=== PATIENT | female | born 1960 ===

== ENCOUNTER 2017-05-25 20:06 | Inpatient (IN) | payer OTHER ==
[~2017-05-25] VITALS: Ht 160 cm; Wt 66.0 kg
[2017-05-25 20:08] VITALS: BP 173/77; PULSE 64; RESP 16; TEMP 98.8; O2SAT 98
[2017-05-25] MEDS ORDERED: ATOR20TA15 PO (20:40)
--- NOTE | 2017-05-25 21:03 | PD ---
HPI Chief Complaint: Abdominal Pain Time Seen by Provider: 20:56 Travel History International Travel<30 days: No Contact w/Intl Traveler<30days: No Traveled to known affect area: No History of Present Illness HPI 56-year-old female came to the emergency room with history of vomiting since midnight last night and abdominal pain in the right upper quadrant and epigastric area. Patient speaks limited Pashto but is able to communicate with her broken Pashto. She appeared to be in moderate to significant distress. She does not have any significant medical history. Her temperature was 100. No history of diarrhea. She has never had these symptoms in the past. Heart rate and blood pressure were within normal limits. [facility] Past Medical History Narrative Medical List of her past medical, surgical, social and family history reviewed from the nursing note. Immunizations Current: Yes Tetanus Vaccination: Unknown Influenza Vaccination: No Social History Alcohol Use: Yes (socially) Tobacco Use: Yes Substance Use: No Allergies-Medications (Allergen,Severity, Reaction): Coded Allergies: No Known Allergies (Verified Allergy, Unknown, 05/25/17) Comments No known drug allergies. Reported Meds & Prescriptions Reported Meds & Active Scripts Active Reported Atorvastatin (Atorvastatin Calcium) 20 Mg Tab 20 Mg PO HS Narrative Medication List of her home medications reviewed from the nursing note. Review of Systems Except as stated in HPI: all other systems reviewed are Neg Physical Exam Narrative GENERAL: Awake, alert, moderate distress SKIN: Focused skin assessment warm/dry. HEAD: Atraumatic. Normocephalic. EYES: Pupils equal and round. No scleral icterus. No injection or drainage. ENT: No nasal bleeding or discharge. Mucous membranes pink and moist. NECK: Trachea midline. No JVD. CARDIOVASCULAR: Regular rate and rhythm. No murmur appreciated. RESPIRATORY: No accessory muscle use. Clear to auscultation. Breath sounds equal bilaterally. GASTROINTESTINAL: Abdomen soft, Hou sign positive, nondistended. Hepatic and splenic margins not palpable. MUSCULOSKELETAL: No obvious deformities. No clubbing. No cyanosis. No edema. NEUROLOGICAL: Awake and alert. No obvious cranial nerve deficits. Motor grossly within normal limits. Normal speech. PSYCHIATRIC: Appropriate mood and affect; insight and judgment normal. Data Data Last Documented VS Vital Signs Date Time Temp Pulse Resp B/P (MAP) Pulse Ox O2 Delivery O2 Flow Rate FiO2 05/25/17 22:19 64 16 100 Room Air 05/25/17 20:08 98.8 Orders Orders Complete Blood Count With Diff (05/25/17 20:43) Comprehensive Metabolic Panel (05/25/17 20:43) Iv Access Insert/Monitor (05/25/17 20:43) Oxygen Administration (05/25/17 20:43) Oximetry (05/25/17 20:43) Lipase (05/25/17 20:43) Ed Poc Ultrasound (05/25/17 ) Ct Abd/Pel W/O Iv Contrast (05/25/17 ) Morphine Inj (Morphine Inj) (05/25/17 21:45) Ondansetron Inj (Zofran Inj) (05/25/17 21:45) Sodium Chlor 0.9% 1000 Ml Inj (Ns 1000 M (05/25/17 21:45) Lactic Acid (05/25/17 21:42) Blood Culture (05/25/17 21:42) Prothrombin Time / Inr (Pt) (05/25/17 21:42) Type And Screen (05/25/17 21:42) Piperacil-Tazo 3.375 Gm Premix (Zosyn 3. (05/25/17 21:45) Us Abdomen Gallbladder (05/25/17 ) Admit Order (Ed Use Only) (05/25/17 22:34) Labs Laboratory Tests Test 05/25/17 20:45 05/25/17 21:50 05/25/17 21:58 White Blood Count 15.9 TH/MM3 Red Blood Count 4.69 MIL/MM3 Hemoglobin 14.4 GM/DL Hematocrit 43.5 % Mean Corpuscular Volume 92.7 FL Mean Corpuscular Hemoglobin 30.6 PG Mean Corpuscular Hemoglobin Concent 33.1 % Red Cell Distribution Width 13.3 % Platelet Count 185 TH/MM3 Mean Platelet Volume 10.3 FL Neutrophils (%) (Auto) 85.7 % Lymphocytes (%) (Auto) 8.8 % Monocytes (%) (Auto) 5.2 % Eosinophils (%) (Auto) 0.0 % Basophils (%) (Auto) 0.3 % Neutrophils # (Auto) 13.6 TH/MM3 Lymphocytes # (Auto) 1.4 TH/MM3 Monocytes # (Auto) 0.8 TH/MM3 Eosinophils # (Auto) 0.0 TH/MM3 Basophils # (Auto) 0.1 TH/MM3 CBC Comment DIFF FINAL Differential Comment Blood Urea Nitrogen 16 MG/DL Creatinine 0.96 MG/DL Random Glucose 125 MG/DL Total Protein 7.8 GM/DL Albumin 4.1 GM/DL Calcium Level 8.9 MG/DL Alkaline Phosphatase 113 U/L Aspartate Amino Transf (AST/SGOT) 26 U/L Alanine Aminotransferase (ALT/SGPT) 37 U/L Total Bilirubin 0.6 MG/DL Sodium Level 136 MEQ/L Potassium Level 3.4 MEQ/L Chloride Level 102 MEQ/L Carbon Dioxide Level 26.8 MEQ/L Anion Gap 7 MEQ/L Estimat Glomerular Filtration Rate 60 ML/MIN Lipase 194 U/L Prothrombin Time 10.7 SEC Prothromb Time International Ratio 1.0 RATIO Lactic Acid Level 1.2 mmol/L MDM Medical Decision Making Medical Screen Exam Complete: Yes Emergency Medical Condition: Yes Medical Record Reviewed: Yes Differential Diagnosis Acute cholecystitis, acute pancreatitis, small bowel obstruction, appendicitis Narrative Course 11 PM based on my bedside ultrasound, clinical impression and the blood test result and my suspicion was very high for acute cholecystitis. I ordered a CT as well as official ultrasound in both point towards acute cholecystitis. Patient was given 1 L of IV fluid bolus and IV Zosyn. I have discussed the case with the surgeon Dr. Ogden who will see the patient in the morning and decide for surgery. Patient has been admitted to the hospitalist. Procedures Procedure Narrative Emergency department right upper quadrant ultrasound was performed with patient consent. Curvilinear probe was used in the transverse and sagittal views within the right upper quadrant revealing gallbladder with obvious cholelithiasis and radiologic Hou's positive. EKG Prior to Arrival: No Physician Communication Physician Communication Dr. Ogden Diagnosis Primary Impression: Acute cholecystitis Admitting Information Admitting Physician Requests: Admit Scripts Ibuprofen (Ibuprofen) 400 Mg Tab 400 MG PO Q6H Y for pain for 3 Days, TAB 0 Refills Prov: Joo Noland MD 05/29/17 Tee Arango MD May 25, 2017 21:03
[2017-05-25 21:04] LABS: AUTOMATED NEUTROPHIL # 13.6 TH/MM3 (1.8-7.7); BASOPHIL # 0.1 TH/MM3 (0-0.2); BASOPHIL % 0.3 % (0.0-2.0); HEMATOCRIT 43.5 % (35.0-46.0); HEMO FLAGS DIFF FINAL; LYMPH % 8.8 % (9.0-44.0); LYMPHOCYTE # 1.4 TH/MM3 (1.0-4.8); MEAN CELL VOLUME 92.7 FL (80.0-100.0); MEAN CORPUSCULAR HEMOGLOBIN 30.6 PG (27.0-34.0); MEAN CORPUSCULAR HGB CONC 33.1 % (32.0-36.0); MONO % 5.2 % (0.0-8.0); NEUT % 85.7 % (16.0-70.0); PLATELET COUNT 185 TH/MM3 (150-450); RED BLOOD COUNT 4.69 MIL/MM3 (4.00-5.30); RED CELL DISTRIBUTION WIDTH 13.3 % (11.6-17.2); WHITE BLOOD COUNT 15.9 TH/MM3 (4.0-11.0)
[2017-05-25 21:18] LABS: ANION GAP 7 MEQ/L (5-15); AST (GOT) 26 U/L (15-37); BICARBONATE 26.8 MEQ/L (21.0-32.0); BLOOD UREA NITROGEN 16 MG/DL (7-18); CHLORIDE 102 MEQ/L (98-107); GLOMERULAR FILTRATION RATE 60 ML/MIN (>89); POTASSIUM 3.4 MEQ/L (3.5-5.1); SODIUM (NA) 136 MEQ/L (136-145)
[2017-05-25 21:19] LABS: ALT (GPT) 37 U/L (10-53)
[2017-05-25 21:21] LABS: ALKALINE PHOSPHATASE 113 U/L (45-117); TOTAL BILIRUBIN ADULT 0.6 MG/DL (0.2-1.0)
[2017-05-25] MEDS ORDERED: ONDANSETRON HCL 4 MG/2 ML VIAL IV PUSH ONE (21:45)
[2017-05-25] MEDS ORDERED: MORPHINE SULFATE 8 MG/ML INJ IV PUSH ONE (21:45)
[2017-05-25] MEDS ORDERED: SODIUM CHLOR 0.9% 1000 ML INJ 1,000 ML IV ONE (21:45)
[2017-05-25] MEDS ORDERED: PIPERACIL-TAZO 3.375 GM PREMIX 50 ML IV ONE (21:45)
[2017-05-25 22:19] VITALS: PULSE 64; RESP 16; O2SAT 100
--- NOTE | 2017-05-25 22:30 | RADRPT ---
EXAM DATE/TIME: 05/25/2017 21:59 [facility] COMPARISON: No previous studies available for comparison. INDICATIONS : Right upper quadrant pain. MEDICAL HISTORY : Alcohol use. Tobacco use. SURGICAL HISTORY : None. ENCOUNTER: Initial ACUITY: 1 day PAIN SCORE: 10/10 LOCATION: Right upper quadrant MEASUREMENTS: LIVER: 15.3 cm length COMMON DUCT: 5 mm RIGHT KIDNEY: 9.8 x 4.0 x 3.9 cm FINDINGS: LIVER: Normal echotexture without focal lesion or ductal dilatation. COMMON DUCT: No intraluminal mass or stone visualized. GALLBLADDER: The wall of the gallbladder is thickened. The gallbladder contains multiple stones and sludge also. T here is a positive sonographic Hou's sign. These findings are consistent with acute cholecystitis until proven otherwise. PANCREAS: The visualized portions are within normal limits. RIGHT KIDNEY: No evidence of hydronephrosis, stone, or mass. CONCLUSION: Thick-walled, stone and sludge-containing gallbladder with positive Hou's sign con sistent with acute cholecystitis until proven otherwise. Javed Juan MD on May 25, 2017 at 22:26 Board Certified Radiologist. This report was verified electronically.
[2017-05-25 22:34] LABS: PROTHROMBIN TIME - PATIENT 10.7 SEC (9.8-11.6)
[2017-05-25] MEDS ORDERED: SODIUM CHLOR 0.9% 1000 ML INJ 1,000 ML IV SCH (22:46)
[2017-05-25] MEDS ORDERED: ONDANSETRON HCL 4 MG/2 ML VIAL IV PUSH PRN (23:00)
[2017-05-25] MEDS ORDERED: NALOXONE HCL 0.4 MG/ML AMP IV PRN (23:00)
[2017-05-25] MEDS ORDERED: PIPERACIL-TAZO 3.375 GM PREMIX 50 ML IV SCH (23:00)
[2017-05-25] MEDS ORDERED: SODIUM CHLORIDE 0.9% FLUSH 10 ML FLUSH IV FLUSH PRN (23:00)
[2017-05-25] MEDS ORDERED: HYDROmorphone HCL PF 1 MG/ML VIAL IV PRN (23:00)
--- NOTE | 2017-05-25 23:01 | RADRPT ---
EXAM DATE/TIME: 05/25/2017 22:24 [facility] COMPARISON: No previous studies available for comparison. INDICATIONS : Abdominal pain with nausea and vomiting. ORAL CONTRAST: No oral contrast ingested. RADIATION DOSE: 9.12 CTDIvol (mGy) MEDICAL HISTORY : None SURGICAL HISTORY : None. ENCOUNTER: Initial ACUITY: 1 day PAIN SCALE: 5/10 LOCATION: Bilateral abdomen TECHNIQUE: Volumetric scanning of the abdomen and pelvis was performed. Using automated exposure control and ad justment of the mA and/or kV according to patient size, radiation dose was kept as low as reasonably achievable to obtain optimal diagnostic quality images. DICOM format image data is available electro nically for review and comparison. FINDINGS: LOWER LUNGS: Bibasilar atelectasis and/or fibrotic scarring. LIVER: Homogeneous density without lesion. There is no dilation of the biliary tree. There is a thick-jordy d, calcified stone-containing gallbladder which demonstrates pericholecystic fluid. The findings, arsalan ng with the ultrasound findings done earlier, are consistent with acute cholecystitis. Clinical corre lation is recommended. SPLEEN: Normal size without lesion. PANCREAS: Within normal limits. KIDNEYS: Normal in size and shape. There is no mass, stone, or hydronephrosis. ADRENAL GLANDS: Within normal limits. VASCULAR: There is no aortic aneurysm. BOWEL/MESENTERY: The stomach, small bowel, and colon demonstrate no acute abnormality. There is no free intraperitone al air or fluid. ABDOMINAL WALL: Within normal limits. RETROPERITONEUM: There is no lymphadenopathy. BLADDER: No wall thickening or mass. REPRODUCTIVE: Within normal limits. INGUINAL: There is no lymphadenopathy or hernia. MUSCULOSKELETAL: Within normal limits for patient age. CONCLUSION: 1. Thick-walled, calcified stone-containing gallbladder which demonstrates pericholecystic fluid. The findings, along with the ultrasound findings done earlier, are consistent with acute cholecystitis. Clinical correlation is recommended. 2. Bibasilar atelectasis and/or fibrotic scarring. Javed Juan MD on May 25, 2017 at 22:56 Board Certified Radiologist. This report was verified electronically.
[2017-05-25] MEDS: NS + KCL 20 MEQ INJ 1,000 ML IV SCH (23:26)
[2017-05-26] VITALS: BP 132/61; PULSE 89; RESP 18; TEMP 98.9; O2SAT 98
[2017-05-26] MEDS ORDERED: POVIDONE IODINE 5% (ANTISEPSIS KIT) 4 APPLICATIONS EACH NARE PRN (01:15)
[2017-05-26] MEDS ORDERED: SODIUM CHLORID 0.9% 500 ML IV PRN (01:15)
[2017-05-26] MEDS ORDERED: CHLORHEXIDINE GLUCONATE 2 % 1 PACK (2 CLOTHS) TOPICAL PRN (01:15)
[2017-05-26] MEDS ORDERED: LACTATED RINGER'S 1000 ML IV PRN (01:15)
[2017-05-26] MEDS ORDERED: INSULIN HUMAN REGULAR 1,000 UNITS/10 ML VIAL SQ PRN (01:15)
[2017-05-26] MEDS ORDERED: METOPROLOL TARTRATE 25 MG TAB PO PRN (01:15)
[2017-05-26] MEDS: PIPERACIL-TAZO 3.375 GM PREMIX 50 ML IV SCH ×4 (04:08→21:20)
[2017-05-26 04:09] VITALS: BP 127/56; PULSE 72; RESP 18; TEMP 99.2; O2SAT 99
[2017-05-26 07:47] VITALS: BP 152/66; PULSE 65; RESP 17; TEMP 99.4; O2SAT 93
[2017-05-26 08:27] LABS: AUTOMATED NEUTROPHIL # 10.8 TH/MM3 (1.8-7.7); BASOPHIL % 0.2 % (0.0-2.0); HEMATOCRIT 36.6 % (35.0-46.0); HEMO FLAGS DIFF FINAL; LYMPH % 11.7 % (9.0-44.0); LYMPHOCYTE # 1.6 TH/MM3 (1.0-4.8); MEAN CELL VOLUME 93.7 FL (80.0-100.0); MEAN CORPUSCULAR HEMOGLOBIN 31.5 PG (27.0-34.0); MEAN CORPUSCULAR HGB CONC 33.6 % (32.0-36.0); MONO % 6.7 % (0.0-8.0); NEUT % 81.4 % (16.0-70.0); PLATELET COUNT 142 TH/MM3 (150-450); RED BLOOD COUNT 3.91 MIL/MM3 (4.00-5.30); RED CELL DISTRIBUTION WIDTH 13.2 % (11.6-17.2); WHITE BLOOD COUNT 13.3 TH/MM3 (4.0-11.0)
[2017-05-26 09:23] LABS: BICARBONATE 25.2 MEQ/L (21.0-32.0); POTASSIUM 3.7 MEQ/L (3.5-5.1)
[2017-05-26] MEDS: HYDROmorphone HCL PF 1 MG/ML VIAL IV PRN ×3 (09:26→19:31)
[2017-05-26] MEDS: NS + KCL 20 MEQ INJ 1,000 ML IV SCH ×2 (09:26→19:32)
[2017-05-26] MEDS: SODIUM CHLORIDE 0.9% FLUSH 10 ML FLUSH IV FLUSH SCH ×2 (09:28→19:36)
--- NOTE | 2017-05-26 10:40 | HHI.HP ---
HPI Service [facility] Hospitalists Primary Care Physician Unknown Admission Diagnosis acute cholecystitis Chief Complaint: abdomen pain Travel History International Travel<30 Days: No Contact w/Intl Traveler <30 Da: No Traveled to Known Affected Are: No History of Present Illness Pt is 56 yo female presented with abdomen pain. Pt says she has had ruq pain on/ off for 2 days. It worsened with her meals and she was vomiting as well. In ED she had gb u/s and CT a/p consistent with acute cholecystitis. She was stared on abx and gen surg consulted. Currently she appears more comfortable after iv pain meds. She denies and any cardiopulmonary diseases. Review of Systems Other ruq pain. n/v Past Family Social History Past Medical History hyperlipidemia Reported Medications Atorvastatin (Atorvastatin Calcium) 20 Mg Tab 20 Mg PO HS Allergies: Coded Allergies: No Known Allergies (Verified Allergy, Unknown, 05/25/17) Family History nc Social History no etoh quit tobacco 1 yr ago Physical Exam Vital Signs nad heart reg lung cta abd ruq tender/pollack sign/no rebound. bs ext no edema Vital Signs Date Time Temp Pulse Resp B/P (MAP) Pulse Ox O2 Delivery O2 Flow Rate FiO2 05/26/17 07:47 99.4 65 17 152/66 (94) 93 05/26/17 04:09 99.2 72 18 127/56 (79) 99 05/26/17 02:17 Room Air 05/26/17 00:17 05/26/17 00:00 98.9 89 18 132/61 (84) 98 05/25/17 22:19 64 16 100 Room Air 05/25/17 20:08 98.8 64 16 173/77 (109) 98 Room Air Laboratory Laboratory Tests Test 05/25/17 20:45 05/25/17 21:50 05/25/17 21:58 05/26/17 07:15 White Blood Count 15.9 13.3 Red Blood Count 4.69 3.91 Hemoglobin 14.4 12.3 Hematocrit 43.5 36.6 Mean Corpuscular Volume 92.7 93.7 Mean Corpuscular Hemoglobin 30.6 31.5 Mean Corpuscular Hemoglobin Concent 33.1 33.6 Red Cell Distribution Width 13.3 13.2 Platelet Count 185 142 Mean Platelet Volume 10.3 10.9 Neutrophils (%) (Auto) 85.7 81.4 Lymphocytes (%) (Auto) 8.8 11.7 Monocytes (%) (Auto) 5.2 6.7 Eosinophils (%) (Auto) 0.0 0.0 Basophils (%) (Auto) 0.3 0.2 Neutrophils # (Auto) 13.6 10.8 Lymphocytes # (Auto) 1.4 1.6 Monocytes # (Auto) 0.8 0.9 Eosinophils # (Auto) 0.0 0.0 Basophils # (Auto) 0.1 0.0 CBC Comment DIFF FINAL DIFF FINAL Differential Comment Blood Urea Nitrogen 16 13 Creatinine 0.96 0.74 Random Glucose 125 118 Total Protein 7.8 Albumin 4.1 Calcium Level 8.9 7.9 Alkaline Phosphatase 113 Aspartate Amino Transf (AST/SGOT) 26 Alanine Aminotransferase (ALT/SGPT) 37 Total Bilirubin 0.6 Sodium Level 136 138 Potassium Level 3.4 3.7 Chloride Level 102 106 Carbon Dioxide Level 26.8 25.2 Anion Gap 7 7 Estimat Glomerular Filtration Rate 60 81 Lipase 194 Prothrombin Time 10.7 Prothromb Time International Ratio 1.0 Lactic Acid Level 1.2 Date/Time Source Procedure Growth Status 05/25/17 21:55 Blood Peripheral Aerobic Blood Culture Pending Received 05/25/17 21:55 Blood Peripheral Anaerobic Blood Culture Pending Received Result Diagram: 05/26/17 0715 05/26/17 0715 Caprini VTE Risk Assessment Caprini VTE Risk Assessment: No/Low Risk (score <= 1) Caprini Risk Assessment Model Point Value = 1 Point Value = 2 Point Value = 3 Point Value = 5 Age 41-60 Minor surgery BMI > 25 kg/m2 Swollen legs Varicose veins or History of unexplained or recurrent spontaneous Oral contraceptives or hormone replacement Sepsis (< 1 month) Serious lung disease, including pneumonia (< 1 month) Abnormal pulmonary function Acute myocardial infarction Congestive heart failure (< 1 month) History of inflammatory bowel disease Medical patient at bed rest Age 61-74 Arthroscopic surgery Major open surgery (> 45 min) Laparoscopic surgery (> 45 min) Malignancy Confined to bed (> 72 hours) Immobilizing plaster cast Central venous access Age >= 75 History of VTE Family history of VTE Factor V Leiden Prothrombin [id number] Lupus anticoagulant Anticardiolipin antibodies Elevated serum homocysteine Heparin-induced thrombocytopenia Other congenital or acquired thrombophilia Stroke (< 1 month) Elective arthroplasty Hip, pelvis, or leg fracture Acute spinal cord injury (< 1 month) Prophylaxis Regimen Total Risk Factor Score Risk Level Prophylaxis Regimen 0-1 Low Early ambulation 2 Moderate Order ONE of the following: *Sequential Compression Device (SCD) *Heparin 5000 units SQ BID 3-4 Higher Order ONE of the following medications: *Heparin 5000 units SQ TID *Enoxaparin/Lovenox 40 mg SQ daily (WT < 150 kg, CrCl > 30 mL/min) *Enoxaparin/Lovenox 30 mg SQ daily (WT < 150 kg, CrCl > 10-29 mL/min) *Enoxaparin/Lovenox 30 mg SQ BID (WT < 150 kg, CrCl > 30 mL/min) AND/OR *Sequential Compression Device (SCD) 5 or more Highest Order ONE of the following medications: *Heparin 5000 units SQ TID (Preferred with Epidurals) *Enoxaparin/Lovenox 40 mg SQ daily (WT < 150 kg, CrCl > 30 mL/min) *Enoxaparin/Lovenox 30 mg SQ daily (WT < 150 kg, CrCl > 10-29 mL/min) *Enoxaparin/Lovenox 30 mg SQ BID (WT < 150 kg, CrCl > 30 mL/min) AND *Sequential Compression Device (SCD) Assessment and Plan Problem List: (1) Acute cholecystitis ICD Codes: K81.0 - Acute cholecystitis Status: Acute Plan: Pt is 56 yo with acute cholecystitis Gen surg consulted for lap raquel npo IVF abx given prn iv pain control dvt prophylaxis d/c when ok with gen surg. Physician Certification 2 Midnight Certification Type: Admission for Inpatient Services Order for Inpatient Services 2The services are ordered in accordance with Medicare regulations or non- Medicare payer requirements, as applicable. In the case of services not specified as inpatient-only, they are appropriately provided as inpatient services in accordance with the 2-midnight benchmark. Estimated LOS (days): 2 2 days is the estimated time the patient will need to remain in the hospital, assuming treatment plan goals are met and no additional complications. Post-Hospital Plan: Home Joo Noland MD May 26, 2017 10:40
[2017-05-26] MEDS ORDERED: ONDANSETRON HCL 4 MG/2 ML VIAL IV PUSH PRN (10:45)
[2017-05-26 11:42] VITALS: BP 133/62; PULSE 68; RESP 17; TEMP 99.1; O2SAT 92
--- NOTE | 2017-05-26 11:42 | EKG ---
Date Performed: 05/26/2017 Time Performed: 10:59:07 PTAGE: 56 years EKG: Sinus rhythm NORMAL ECG NO PREVIOUS TRACING DOCTOR: Salvador Bernard Interpretating Date/Time 05/26/2017 11:41:03
[2017-05-26 16:00] VITALS: BP 122/68; PULSE 64; RESP 17; TEMP 96.1; O2SAT 92
[2017-05-26 19:17] VITALS: BP 150/71; PULSE 77; RESP 18; TEMP 97.9; O2SAT 99
[2017-05-26] MEDS ORDERED: POTASSIUM CHLORIDE INJ 20 MEQ in SODIUM CHLOR 0.9% 1000 ML INJ 1,000 ML IV SCH (22:46)
[2017-05-27 00:42] VITALS: BP 129/89; PULSE 89; RESP 18; TEMP 98.9; O2SAT 98
[2017-05-27] MEDS: HYDROmorphone HCL PF 1 MG/ML VIAL IV PRN ×4 (02:11→18:06)
[2017-05-27 03:40] VITALS: BP 107/66; PULSE 89; RESP 18; TEMP 97.8; O2SAT 93
[2017-05-27] MEDS: PIPERACIL-TAZO 3.375 GM PREMIX 50 ML IV SCH ×4 (03:59→22:35)
[2017-05-27] MEDS: NS + KCL 20 MEQ INJ 1,000 ML IV SCH ×3 (03:59→22:35)
[2017-05-27 08:00] VITALS: BP 132/71; PULSE 73; RESP 20; TEMP 96.5; O2SAT 94
[2017-05-27] MEDS: SODIUM CHLORIDE 0.9% FLUSH 10 ML FLUSH IV FLUSH SCH ×2 (08:16→20:17)
--- NOTE | 2017-05-27 09:04 | HHI.PR ---
Subjective Remarks doing ok. no new complaints Objective Vitals heart reg lung cta abd ruq tender. bs ext no edema Vital Signs Date Time Temp Pulse Resp B/P (MAP) Pulse Ox O2 Delivery O2 Flow Rate FiO2 05/27/17 07:11 Room Air 05/27/17 03:40 97.8 89 18 107/66 (80) 93 05/27/17 00:42 98.9 89 18 129/89 (102) 98 05/26/17 19:17 97.9 77 18 150/71 (97) 99 05/26/17 16:00 96.1 64 17 122/68 (86) 92 05/26/17 11:42 99.1 68 17 133/62 (85) 92 Result Diagram: 05/26/17 0715 05/26/17 0715 A/P Problem List: (1) Acute cholecystitis ICD Codes: K81.0 - Acute cholecystitis Status: Acute Plan: Pt is 56 yo with acute cholecystitis Gen surg consulted for lap raquel today npo IVF abx given prn iv pain control dvt prophylaxis d/c when ok with gen surg. Joo Noland MD May 27, 2017 09:04
--- NOTE | 2017-05-27 09:05 | HHI.DCPOC ---
Discharge Care Plan Diagnosis: (1) Acute cholecystitis Goals to Promote Your Health * To prevent worsening of your condition and complications * To maintain your health at the optimal level Directions to Meet Your Goals Take your medications as prescribed Follow your dietary instruction Follow activity as directed Keep your appointments as scheduled Take your immunizations and boosters as scheduled If your symptoms worsen call your PCP, if no PCP go to Urgent Care Center or Emergency Room Smoking is Dangerous to Your Health. Avoid second hand smoke Call the 24-hour hour crisis hotline for domestic abuse at Joo Noland MD May 27, 2017 09:05
[2017-05-27 11:15] VITALS: BP_SYST 106; BP_SYST 84; BP_DIAS 57; BP_DIAS 70; PULSE 83; RESP 16; TEMP 98.6; O2SAT 94
[2017-05-27 16:20] VITALS: BP 122/64; PULSE 78; RESP 16; TEMP 99.5; O2SAT 93
[2017-05-27 20:10] VITALS: BP 107/53; PULSE 77; RESP 17; TEMP 99.9; O2SAT 93
[2017-05-28] VITALS (8 sets, daily range): BP systolic 117–142; BP diastolic 56–62; PULSE 65–80; RESP 15–17; TEMP 95.7–99.6; O2SAT 92–96
[2017-05-28] MEDS: HYDROmorphone HCL PF 1 MG/ML VIAL IV PRN (01:07)
[2017-05-28] MEDS: PIPERACIL-TAZO 3.375 GM PREMIX 50 ML IV SCH ×4 (04:43→21:01)
[2017-05-28] MEDS: SODIUM CHLORIDE 0.9% FLUSH 10 ML FLUSH IV FLUSH SCH ×2 (08:10→21:01)
[2017-05-28] MEDS: NS + KCL 20 MEQ INJ 1,000 ML IV SCH (08:10)
[2017-05-28] MEDS ORDERED: BUPIVACAINE/EPINEPHRINE 0.5% PF 10 ML VIAL ONE (09:36)
[2017-05-28] MEDS ORDERED: BUPIVACAINE/EPINEPHRINE 0.5% 50 ML VIAL ONE (09:42)
[2017-05-28] MEDS ORDERED: FAMOTIDINE 20 MG/2 ML VIAL ONE (10:08)
[2017-05-28] MEDS ORDERED: MIDAZOLAM HCL 2 MG/2 ML VIAL ONE (10:08)
[2017-05-28] MEDS ORDERED: PROPOFOL 200 MG/20 ML AMP IV ONE (12:00)
[2017-05-28] MEDS ORDERED: LACTATED RINGER'S 1000 ML INJ 1,000 ML IV ONE (12:00)
[2017-05-28] MEDS ORDERED: ONDANSETRON HCL 4 MG/2 ML VIAL IV PUSH ONE (12:00)
[2017-05-28] MEDS ORDERED: SUGAMMADEX SODIUM 200 MG/2 ML VIAL IV PUSH ONE ×2 (12:39)
[2017-05-28] MEDS ORDERED: DO NOT ADM ANY ANTICOAGULANT DRUGS PRN (13:17)
--- NOTE | 2017-05-28 13:37 | PD.OP ---
cc: Rusty Fulton MD Operative Report Date of Surgery: May 28, 2017 Preoperative Diagnosis: Acute cholecystitis Postoperative Diagnosis: Acute cholecystitis Procedure: Laparoscopic cholecystectomy Anesthesia: General endotracheal Surgeon: Rusty Fulton Educational Psychology Professor(s): Javed Nesbitt CFA Operation and Findings: Operative findings: The patient was found to have a gallbladder which had patchy gangrene. It was grossly distended and contained very large stones within its lumen. There is quite a bit of reaction around it with the omentum plastered to it. There is also more lightly adhesed to the duodenum. The cystic duct and common bile duct were seen to be of normal caliber. Operative procedure: The patient was brought to the operating room and after satisfactory general endotracheal anesthesia obtained, the abdomen was prepped and draped in usual sterile fashion. 0.5% Marcaine with epinephrine was used to infiltrate the skin for local anesthesia. Small incision was made just above the umbilicus and a 5 mm trochars inserted into the peritoneal cavity under direct visualization. The abdomen was then distended 15 mmHg using carbon dioxide. The camera was reinserted and visceral injury inspected for, with none being identified. Under direct visualization a 5 port a 12 port were placed in the upper midline without problem. The gallbladder was barely visible due to the omental adhesions. It was grasped and the omentum adhesions were taken down bluntly with a Harmonic scalpel being used for hemostasis. An Endo Rohith clamp was necessary to grasp the gallbladder and after an attempt to empty any bowel failed to retrieve more than of approximately 10 mL's of bile. The adhesions were taken down bluntly until Juarez's pouch was identified. It was mesh was then grasped and retracted inferiorly and laterally placing tension on the hepatoduodenal ligament. The patient's gallbladder wall was extremely thickened and the dissection was very tedious. With a great deal of difficulty the cystic artery was identified as it entered the gallbladder. There is seen to be a large branch which was felt likely be the right hepatic which curved around superiorly and entered the liver parenchyma. There was dense tissue attached to this area which represented the back wall of the gallbladder. Most of this tissue was left (approximately 2.5 cm) but no mucosa was left behind. There is cystic duct was dissected free with quite a bit of difficulty and the junction with the common bile duct was visualized. The cystic duct was then clamped with a Hemoclip after which it was divided near the gallbladder with a Harmonic scalpel. A Harmonic scalpel was then used to dissected gallbladder completely free from the liver bed. The gallbladder is placed within an Endo Catch bag and brought through the upper midline incision which was necessarily enlarged to allow egress of the back and the thick-walled gallbladder. A second bag was used to retrieve 2 very large gallstones as well as a piece of omentum which had dissected free earlier. The trochar was reinserted and the liver bed inspected and found to be hemostatic. The cystic duct cystic artery stumps were both seen to be intact with no leakage of bile or blood. It was decided to leave and 10 mm drain which was accomplished by bringing through the 12 mm port and then the end of it out through the 5 mm port were secured to the skin with a 3-0 nylon. The liver bed was inspected once again and found to be hemostatic. The drain was placed within the area of the dissection the liver bed with the omentum and been peeled back. The carbon dioxide was then vented as completely as possible the atmosphere after which the ports were removed and the larger 12 mm incision was closed with interrupted 0 Vicryl sutures. The skin was then closed with interrupted 4-0 PDS subcutaneous stitches. Steri-Strips were applied and the patient then awakened and taken from the operating room, in satisfactory condition, having tolerated procedure without problem. Estimated blood loss was 400 mL's. The instrument, sponge, needle counts were reported as being correct 2 at the end of procedure. Rusty Fulton MD May 28, 2017 13:37
[2017-05-28] MEDS: KETOROLAC TROMETHAMINE 30 MG/ML (IVP) VIAL IV PUSH SCH ×3 (14:00→23:58)
--- NOTE | 2017-05-28 15:27 | HHI.PR ---
Subjective Remarks Pt just returned from OR after undergoing Laparoscopic cholecystectomy with Dr. Fulton. Pt complains of some abdominal pain and distension Afebrile Objective Vitals Vital Signs Date Time Temp Pulse Resp B/P (MAP) Pulse Ox O2 Delivery O2 Flow Rate FiO2 05/28/17 13:17 98.8 87 16 132/64 (86) 94 Nasal Cannula 3 05/28/17 08:17 99.5 70 16 133/60 (84) 93 05/28/17 04:15 99.2 65 16 121/57 (78) 96 05/28/17 00:20 99.6 80 16 121/56 (77) 94 05/27/17 20:10 99.9 77 17 107/53 (71) 93 05/27/17 16:20 99.5 78 16 122/64 (83) 93 05/28/17 05/28/17 05/29/17 15:00 23:00 07:00 Intake Total 1450 ml Output Total 420 ml Balance 1030 ml IV Total 1450 ml Output Drainage Total 20 ml Estimated Blood Loss 400 ml Result Diagram: 05/26/17 0715 05/26/17 0715 Imaging Last Impressions Gall Bladder Ultrasound 05/25/17 0000 Signed Impressions: Service Date/Time: Thursday, May 25, 2017 21:59 - CONCLUSION: Thick-walled , stone and sludge-containing gallbladder with positive Hou's sign consistent with acute cholecystitis until proven otherwise. Javed Juan MD Abdomen/Pelvis CT 05/25/17 0000 Signed Impressions: Service Date/Time: Thursday, May 25, 2017 22:24 - CONCLUSION: 1. Thick-walled, calcified stone-containing gallbladder which demonstrates pericholecystic fluid. The findings, along with the ultrasound findings done earlier, are consistent with acute cholecystitis. Clinical correlation is recommended. 2. Bibasilar atelectasis and/or fibrotic scarring. Javed Juan MD Objective Remarks General: NAD, AAOx3 Chest: CTA Cardiac: Regular Abd: +BS, soft mildly distended, laparoscopic incisions are c/d/i with steri- strips in place Ext: No edema A/P Problem List: (1) Acute cholecystitis ICD Codes: K81.0 - Acute cholecystitis Status: Acute Plan: - Pt is 56 yo female who presented with abdominal pain - She was found to have acute cholecystitis - Pt underwent Laparoscopic cholecystectomy on 05/28/17 - Diet advancement per GS - Abx given - PRN pain control with po and IV for breakthrough - Constipation precautions - Labs in AM - DVT prophylaxis - d/c when ok with gen surg. Assessment and Plan Patient examined. Assessment and plan formulated with Nuria Roberson PA-C. I agree with the above. Nuria Roberson May 28, 2017 15:27 Jose Osorio DO May 30, 2017 01:40
[2017-05-28] MEDS ORDERED: MAGNESIUM HYDROXIDE SUSP 30 ML CUP PO PRN (16:15)
[2017-05-28] MEDS ORDERED: ACETAMINOPHEN/HYDROcodone 325 MG/5 MG TAB PO PRN (16:15)
[2017-05-28] MEDS: ACETAMINOPHEN/HYDROcodone 325 MG/5 MG TAB PO PRN (17:02)
[2017-05-28] MEDS: DOCUSATE SODIUM 100 MG CAP PO SCH (21:01)
[2017-05-29] VITALS: BP 101/48; PULSE 51; RESP 15; TEMP 97.5; O2SAT 96
[2017-05-29] MEDS: PIPERACIL-TAZO 3.375 GM PREMIX 50 ML IV SCH (03:49)
[2017-05-29] MEDS: KETOROLAC TROMETHAMINE 30 MG/ML (IVP) VIAL IV PUSH SCH ×2 (05:52→11:15)
[2017-05-29 07:50] LABS: AUTOMATED NEUTROPHIL # 7.5 TH/MM3 (1.8-7.7); BASOPHIL % 0.2 % (0.0-2.0); HEMATOCRIT 32.4 % (35.0-46.0); HEMO FLAGS DIFF FINAL; LYMPH % 10.8 % (9.0-44.0); MEAN CELL VOLUME 93.2 FL (80.0-100.0); MEAN CORPUSCULAR HEMOGLOBIN 31.6 PG (27.0-34.0); MEAN CORPUSCULAR HGB CONC 33.9 % (32.0-36.0); MONO % 6.7 % (0.0-8.0); NEUT % 82.3 % (16.0-70.0); PLATELET COUNT 141 TH/MM3 (150-450); RED BLOOD COUNT 3.48 MIL/MM3 (4.00-5.30); RED CELL DISTRIBUTION WIDTH 12.9 % (11.6-17.2); WHITE BLOOD COUNT 9.1 TH/MM3 (4.0-11.0)
[2017-05-29 07:58] VITALS: BP 142/61; PULSE 60; RESP 17; TEMP 95.9; O2SAT 96
[2017-05-29 08:00] LABS: BICARBONATE 27.1 MEQ/L (21.0-32.0); POTASSIUM 3.8 MEQ/L (3.5-5.1)
[2017-05-29 08:04] LABS: INDIRECT BILIRUBIN 0.5 MG/DL (0.0-0.8); TOTAL BILIRUBIN ADULT 0.8 MG/DL (0.2-1.0)
--- NOTE | 2017-05-29 08:44 | HHI.PR ---
Subjective Remarks feels well. wants to go home Objective Vitals heart reg lung cta abd meir. serosanguinous. dry blood on skin ext no edema Vital Signs Date Time Temp Pulse Resp B/P (MAP) Pulse Ox O2 Delivery O2 Flow Rate FiO2 05/29/17 07:58 95.9 60 17 142/61 (88) 96 05/29/17 07:32 Room Air 05/29/17 06:52 18 05/29/17 00:00 97.5 51 15 101/48 (65) 96 05/28/17 22:38 95 Nasal Cannula 3.00 05/28/17 19:00 97.8 68 15 117/61 (79) 95 05/28/17 16:07 95.7 76 17 142/61 (88) 92 05/28/17 16:00 97.1 79 16 142/61 (88) 92 05/28/17 14:35 97.8 66 16 124/62 (82) 93 05/28/17 13:17 98.8 87 16 132/64 (86) 94 Nasal Cannula 3 Result Diagram: 05/29/17 0610 05/29/17 0610 Imaging Last Impressions Gall Bladder Ultrasound 05/25/17 0000 Signed Impressions: Service Date/Time: Thursday, May 25, 2017 21:59 - CONCLUSION: Thick-walled , stone and sludge-containing gallbladder with positive Hou's sign consistent with acute cholecystitis until proven otherwise. Javed Juan MD Abdomen/Pelvis CT 05/25/17 0000 Signed Impressions: Service Date/Time: Thursday, May 25, 2017 22:24 - CONCLUSION: 1. Thick-walled, calcified stone-containing gallbladder which demonstrates pericholecystic fluid. The findings, along with the ultrasound findings done earlier, are consistent with acute cholecystitis. Clinical correlation is recommended. 2. Bibasilar atelectasis and/or fibrotic scarring. Javed Juan MD A/P Problem List: (1) Acute cholecystitis ICD Codes: K81.0 - Acute cholecystitis Status: Acute Plan: - Pt is 56 yo female who presented with abdominal pain - She was found to have acute cholecystitis - Pt underwent Laparoscopic cholecystectomy on 05/28/17 - Diet advancement discussed with Dr Fulton. no bile in MEIR. d/c and f/u 1 week. pt says she will just use prn tylenol but she is not in pain currently. Joo Noland MD May 29, 2017 08:44
[2017-05-29] MEDS ORDERED: IBUP400T20 PO (08:46)
[2017-05-29] MEDS: SODIUM CHLORIDE 0.9% FLUSH 10 ML FLUSH IV FLUSH SCH (09:00)
[2017-05-29] MEDS: DOCUSATE SODIUM 100 MG CAP PO SCH (09:03)
[2017-05-29 11:30] VITALS: O2SAT 94
[2017-05-29 11:32] VITALS: BP 116/57; PULSE 88; RESP 17; TEMP 95.6; O2SAT 95
[2017-05-29] MEDS: ACETAMINOPHEN/HYDROcodone 325 MG/5 MG TAB PO PRN (12:12)
--- NOTE | 2017-06-19 14:26 | HHI.DS ---
Discharge Summary Admission Date May 25, 2017 at 22:36 Discharge Date: May 29, 2017 Admitting Diagnosis acute cholecystitis (1) Acute cholecystitis Diagnosis: Principal ICD Codes: K81.0 - Acute cholecystitis Status: Acute Procedures Laparoscopic cholecystectomy on 05/28/[address] Fulton Brief History Pt is 56 yo female presented with abdomen pain. Pt says she has had ruq pain on/ off for 2 days. It worsened with her meals and she was vomiting as well. In ED she had gb u/s and CT a/p consistent with acute cholecystitis. She was stared on abx and gen surg consulted. Currently she appears more comfortable after iv pain meds. She denies and any cardiopulmonary diseases. Imaging Last Impressions Gall Bladder Ultrasound 05/25/17 0000 Signed Impressions: Service Date/Time: Thursday, May 25, 2017 21:59 - CONCLUSION: Thick-walled , stone and sludge-containing gallbladder with positive Hou's sign consistent with acute cholecystitis until proven otherwise. Javed Juan MD Abdomen/Pelvis CT 05/25/17 0000 Signed Impressions: Service Date/Time: Thursday, May 25, 2017 22:24 - CONCLUSION: 1. Thick-walled, calcified stone-containing gallbladder which demonstrates pericholecystic fluid. The findings, along with the ultrasound findings done earlier, are consistent with acute cholecystitis. Clinical correlation is recommended. 2. Bibasilar atelectasis and/or fibrotic scarring. Javed Juan MD Hospital Course Pt is 56 yo female who presented with abdominal pain. She was found to have acute cholecystitis based on clinical presentation and findings on CT scan and Abd US. Pt was seen by General Surgery and she underwent Laparoscopic cholecystectomy on 05/28/[address] Fulton. Her diet was advanced per GS. The case was discussed with Dr Fulton on the day of discharge and it was noted that the pt was cleared for d/c from their stand point and should f/u in 1 week. Pt says she will just use prn tylenol for pain control at home. Pt Condition on Discharge: Stable Discharge Disposition: Discharge Home Discharge Instructions DIET: Follow Instructions for: As Tolerated, No Restrictions Activities you can perform: Regular-No Restrictions Follow up Referrals: Surgical - 1 Week with Rusty Fulton MD New Medications: Ibuprofen (Ibuprofen) 400 Mg Tab 400 MG PO Q6H PRN for pain for 3 Days, TAB 0 Refills Continued Medications: Atorvastatin (Atorvastatin) 20 Mg Tab 20 MG PO HS for Cholesterol Management, #30 TAB 0 Refills Nuria Roberson Jun 19, 2017 14:26
== END 2017-05-29 15:30 | disposition home or self-care (01) | DRG 419 ==
LOC: NEPD 20:06 → NEDA 22:36 → N06B 23:39
PROVIDERS: ADMIT Hospitalist; ATTEND Hospitalist
PROC: 0DBS4ZZ (ICD-10-PCS; 2017-05-28)
PROC: 0FT44ZZ Resection of Gallbladder, Percutaneous Endoscopic Approach (ICD-10-PCS; principal; 2017-05-28 10:14)
DX: K80.00 Calculus of gallbladder with acute cholecystitis without obstruction (principal); E78.5 Hyperlipidemia, unspecified; Z87.891 Personal history of nicotine dependence
CPT/HCPCS: 74176; 76705; 80048; 80053; 80076; 83605; 83690; 85025; 85610; 86850; 86900; 86901; 87040; 88304; 93005; 96374; 96375; J1170; J1885; J2250; J2270; J2405; J2543; J3010; J3480; J7030; J7120